=== PATIENT | female | born 1950 | race Caucasian/White ===

== ENCOUNTER 2017-10-13 13:19 | Inpatient (IN) ==
--- NOTE | 2017-10-12 09:01 | Discharge Summary ---
<Meme Ferguson E - Last Filed: 10/12/17 08:59> Date of Encounter: 10/12/17 - Discharge Diagnosis (1) Status post total replacement of right shoulder Priority: Primary Status: Acute (2) Rotator cuff tear arthropathy of right shoulder Priority: Primary Status: Chronic (3) Arthritis of right shoulder region Priority: Primary Status: Chronic (4) Diabetes mellitus Priority: Secondary Status: Chronic Qualifiers: Diabetes mellitus type: type 2 Diabetes mellitus terminal supervisor insulin use: without terminal supervisor use Diabetes mellitus complication status: with unspecified complications Qualified Code(s): E11.8 - Type 2 diabetes mellitus with unspecified complications (5) HTN (hypertension) Priority: Secondary Status: Chronic Qualifiers: Hypertension type: unspecified Qualified Code(s): I10 - Essential (primary ) hypertension (6) Osteopenia Priority: Secondary Status: Chronic Qualifiers: Osteopenia location: unspecified Qualified Code(s): M85.80 - Other specified disorders of bone density and structure, unspecified site (7) HLD (hyperlipidemia) Priority: Secondary Status: Chronic Qualifiers: Hyperlipidemia type: unspecified Qualified Code(s): E78.5 - Hyperlipidemia , unspecified (8) OAB (overactive bladder) Priority: Secondary Status: Chronic (9) DIEGO (obstructive sleep apnea) Priority: Secondary Status: Chronic (10) Obesity Priority: Secondary Status: Chronic Qualifiers: Obesity type: unspecified obesity type Obesity classification: unspecified obesity classification Serious obesity comorbidity presence: unspecified whether serious comorbidity present Qualified Code(s): E66.9 - Obesity, unspecified - Hospital Course Hospital course: Ms. Bocanegra is a 67 year old female - Time Spent with Patient Total time spent providing and/or coordinating discharge services: - Discharge Medications Home Medications: OxyCODONE Immed Rel [Roxicodone 5 MG] 5 mg PO Q6HR PRN 7 Days #28 tablet [Rx] Alendronate Sodium [Fosamax] 70 mg PO TIJERINA 10/13/17 [History] Aspirin 81 mg PO DAILY 10/13/17 [History] Metformin HCl [Glucophage] 1,000 mg PO BID 10/13/17 [History] Metoprolol XL (24 HR) Succ [Toprol Xl] 100 mg PO DAILY 10/13/17 [History] Oxybutynin Chloride [Ditropan Xl] 5 mg PO DAILY 10/13/17 [History] Rosuvastatin [Crestor] 20 mg PO HS 10/13/17 [History] Allergies/Adverse Reactions: 3 Allergy/AdvReac Type Severity Reaction Status Date / Time No Known Allergies Allergy Verified 10/13/17 13:51 Primary care physician: Sera Nettles CNP - Patient Status Disposition: Home, Self-Care Condition: Good - Discharge Instructions Follow Up With: Sera Nettles CNP [Primary Care Provider] - <Ethan Wong - Last Filed: 10/14/17 06:28> Orders not resulted at time of discharge: Pending orders 10/13/17 01:00 XR shoulder complete RT [XR] Routine Hemoglobin and Hematocrit [HEME] Routine Date of Encounter: 10/14/17 Time of Encounter: 06:27 - Discharge Diagnosis (1) Morbid obesity with BMI of 40.0-44.9, adult Priority: Secondary Status: Chronic (2) Status post total replacement of right shoulder Priority: Primary Status: Acute (3) Rotator cuff tear arthropathy of right shoulder Priority: Primary Status: Chronic (4) Diabetes mellitus Priority: Secondary Status: Chronic Qualifiers: Diabetes mellitus type: type 2 Diabetes mellitus care home insulin use: without care home use Diabetes mellitus complication status: with unspecified complications Qualified Code(s): E11.8 - Type 2 diabetes mellitus with unspecified complications (5) HTN (hypertension) Priority: Secondary Status: Chronic Qualifiers: Hypertension type: unspecified Qualified Code(s): I10 - Essential (primary ) hypertension (6) Osteopenia Priority: Secondary Status: Chronic Qualifiers: Osteopenia location: unspecified Qualified Code(s): M85.80 - Other specified disorders of bone density and structure, unspecified site (7) HLD (hyperlipidemia) Priority: Secondary Status: Chronic Qualifiers: Hyperlipidemia type: unspecified Qualified Code(s): E78.5 - Hyperlipidemia , unspecified (8) OAB (overactive bladder) Priority: Secondary Status: Chronic (9) DIEGO (obstructive sleep apnea) Priority: Secondary Status: Chronic - Hospital Course Hospital course: Ms. Bocanegra is a 67 year old female Patient was seen this morning doing well without complaints. Afebrile vital signs stable. Operative extremity: Neurovascularly intact Dressing clean dry and intact Calves nontender Assessment and plan: Continue with postoperative care Status post total shoulder replacementThe patient had an uneventful postoperative course. They received antibiotics and physical therapy and were discharged in stable condition. There will follow-up in the office in 2 weeks. - Time Spent with Patient Total time spent providing and/or coordinating discharge services: Primary care physician: Sera Nettles CNP Labs on day of discharge: Labs from last 24 hours 10/13/17 10/13/17 13:54 13:38 WBC 6.4 RBC 4.99 H Hgb 15.3 Hct 45.8 H MCV 91.8 MCH 30.7 MCHC 33.4 RDW 13.0 Plt Count 243 MPV 9.0 L Immature Gran % 0.3 Seg Neutrophils % 60.9 Lymphocytes % 28.4 Monocytes % 6.7 Eosinophils % 3.4 Basophils % 0.3 Neutrophils # 3.9 Lymphocytes # 1.8 Monocytes # 0.4 Eosinophils # 0.2 Basophils # 0.0 POC Glucose 113 H - Patient Status Functional capacity at discharge: independent ambulation Overall status at discharge: patient is progressing back to baseline
[2017-10-13 14:18] LABS: Basophils % 0.3 %; Eosinophils # 0.2 K/mcL (0.0-0.6); Eosinophils % 3.4 %; Hematocrit 45.8 % (35.3-44.9); Hemoglobin 15.3 g/dL (11.5-15.4); Immature Granulocytes % 0.3 % (0-4); Lymphocytes # 1.8 K/mcL (0.6-4.6); Lymphocytes % 28.4 %; Mean Corpuscular HGB Conc 33.4 g/dL (31.6-35.5); Mean Corpuscular Hemoglobin 30.7 pg (28.0-33.3); Mean Corpuscular Volume 91.8 fL (83.0-100.0); Monocytes # 0.4 K/mcL (0.0-1.3); Monocytes % 6.7 %; Neutrophils # 3.9 K/mcL (1.6-8.9); Platelet Count 243 K/mcL (140-400); Red Blood Count 4.99 M/mcL (3.82-4.97); Segmented Neutrophils % 60.9 %
[2017-10-13] MEDS ORDERED: CeFAZolin Syr 2,000MG/20 ML 2,000 MG/20 ML SYRINGE IVPB ONE (14:22)
[2017-10-13] MEDS ORDERED: Famotidine 20 MG/2 ML VIAL IVP ONE (14:35)
[2017-10-13] MEDS ORDERED: Acetaminophen IV 1,000 MG/100 ML INFUS..BTL IVPB ONE (14:36)
[2017-10-13] MEDS ORDERED: *HR* OxyCODONE Immed Rel 5 MG TABLET PO PRN ×2 (14:36→20:59)
[2017-10-13] MEDS ORDERED: *HR* HYDROmorphone 2 MG TABLET PO PRN (14:36)
[2017-10-13] MEDS ORDERED: Pregabalin 50 MG CAPSULE PO STA (14:36)
[2017-10-13] MEDS ORDERED: *HR* HYDROcodone/Acet 10/325 mg TABLET PO PRN (14:36)
--- NOTE | 2017-10-13 14:41 | Anesthesia Evaluation PreOp ---
Date of Encounter: 10/13/17 Time of Encounter: 14:39 - Past History Planned Operation: R - Total Shoulder Reverse Cardiac History: HTN (maintained on Metoprolol), Hyperlipidemia (maintained on Atorvastatin) Pulmonary History: Former smoker (quit 1981), DIEGO Dx (Denies) DUST COLLECTOR History: Denies Any Significant HX Other Medical History: Diabetes Type II (maintained on Metformin), Other ( Bladder issues managed with Oxybutnin. 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 MO/BMI = 42) Anesthesia History: No Prior Anesthetic Complications, Past Anesthesia (Hyster, R-CTR, Helen, L-ankle. Benign tumor excision R-hand.L-thumb/repair ulnar collateral ligament) Alcohol Use: occasionally Drug use: unknown Medications and Allergies OxyCODONE Immed Rel [Roxicodone 5 MG] 5 mg PO Q6HR PRN 7 Days #28 tablet [Rx] Alendronate Sodium [Fosamax] 70 mg PO TIJERINA 10/13/17 [History] Aspirin 81 mg PO DAILY 10/13/17 [History] Metformin HCl [Glucophage] 1,000 mg PO BID 10/13/17 [History] Metoprolol XL (24 HR) Succ [Toprol XL] 100 mg PO DAILY 10/13/17 [History] Oxybutynin Chloride [Ditropan Xl] 5 mg PO DAILY 10/13/17 [History] Rosuvastatin [Crestor] 20 mg PO HS 10/13/17 [History] 3 Allergy/AdvReac Type Severity Reaction Status Date / Time No Known Allergies Allergy Verified 10/13/17 13:51 - Meds/Allergy Pre-op Review Medications Reviewed: Yes Allergies Reviewed: Yes Beta Blockers on Current Med List: Yes (Metoprolol) If Beta Blockers taken, Date/Time (Last Dose taken): 10/13/2017 @ 1000 Anesthesia Results - Labs 10/13/17 13:54 Laboratory Tests 10/03/17 10/03/17 10/13/17 10:09 10:09 13:38 Sodium 141 Potassium 4.0 Chloride 103 Carbon Dioxide 30 H BUN 13 Creatinine 0.76 Est GFR (Non-Af Amer) > 60 Glucose 156 H POC Glucose 113 H Est Mean Plasma Glucose 143 Hemoglobin A1c 6.6 H - Imaging EKG: image reviewed (EKG dated 10/03/2017 - 63bpm SR, poor R wave progression.) Anesthesia Exam O2 Sat Height 1.6 m Height 1.6 m Weight 106.594 kg Weight 106.594 kg O2 Sat by Pulse Oximetry 96 Vital Signs Temp Pulse Resp BP Pulse Ox 97.9 F 59 18 160/70 96 10/13/17 13:42 10/13/17 13:42 10/13/17 13:42 10/13/17 13:42 10/13/17 13:42 Height: 5'3" Weight: 235# BMI = 42 NPO (# of Hours): MNoc - HEENT Pupil (Motor): Pupils equal, EOMI Mallampati: III Teeth: Normal Oral Opening: Greater than 3 - DUST COLLECTOR LOC: Oriented DUST COLLECTOR Motor: Normal RUE, Normal LUE, Normal RLE, Normal LLE, Normal Face DUST COLLECTOR Sensory: Normal: RUE, LUE, RLE, LLE, Face - Cardiac Rhythm: Regular Murmur: None - Pulmonary Breath Sounds: bilateral Clear Respiratory Effort: Symmetrical Anesthesia Assess/Plan ASA Score: 3 (MO, HTN, DM, Obesity/BMI = 42) Modified Dundee Scale for Level of Consciousness: Cooperative, oriented, and tranquil Anesthetic Plan: General, Regional (Supraclavicular PNB) Monitoring Plan: Standard Monitors Recovery Plan: PACU Anes Supervising Prov Stmt: Pt seen/evaluated, R&B Discussed, questions answered and consent obtained. Deshaun Hare MD
[2017-10-13] MEDS: Ringers Solution, Lactated 1,000 ML IVC SCH ×2 (15:06→18:47)
[2017-10-13] MEDS ORDERED: *HR* FentaNYL (PF) 100 MCG/2 ML VIAL ONE (15:10)
[2017-10-13] MEDS ORDERED: Dexamethasone 4 MG/ML VIAL ONE (15:10)
[2017-10-13] MEDS ORDERED: *HR* Propofol 200 MG/20 ML VIAL IVP ONE (15:11)
[2017-10-13] MEDS ORDERED: *HR* Midazolam HCl 2 MG/2 ML VIAL ONE (15:11)
[2017-10-13] MEDS ORDERED: Lidocaine -MPF 2% 2 ML VIAL ONE (15:15)
[2017-10-13] MEDS ORDERED: Ondansetron 4 MG/2 ML VIAL ONE (15:15)
--- NOTE | 2017-10-13 15:27 | History & Physical Report ---
Date of Encounter: 10/13/17 Time of Encounter: 15:26 24 Hour HP Update - Instructions Instructions: If the History and Physical is less than 30 days old and was completed prior to A.M. admission and or procedure and has NOT been updated on calendar day of procedure please complete this update prior to performing procedure. - Update Patient reports changes in Medical Condition: No Changes in examination, assessment, or condition: No Changes in Medication: No Preop tests/diagnostics Reviewed: Yes Surgery Remains Indicated: Yes Consent for Planned Operative Procedure(s) Verified: Yes - Pre-Operative Checklist Preoperative Checklist Indicated: No Prophylactic Antibiotic Ordered: Yes Is VTE Prophylaxis Indicated?: Yes
[2017-10-13] MEDS ORDERED: Bupivacaine/Clonidine Syringe 1 EACH SYRINGE ONE (15:50)
[2017-10-13] MEDS ORDERED: ROPIVACAINE HCL/PF 0.5% 30 ML VIAL ONE (15:50)
--- NOTE | 2017-10-13 16:26 | Anesthesia Procedures ---
Date of Encounter: 10/13/17 Time of Encounter: 14:40 Procedures: Anesthesia - Nerve Block Procedure Date: 10/13/17 Time: 16:00 Pre-op Diagnosis: Rt Shoulder Arthropathy Surgical Procedure: Rt Total Shoulder Checklist: Correct Patient Identifier Correct side: Right Blood Thinner: No Monitor Applied: EKG, BP, Pulse Oximetry Supplemental Oxygen via Nasal Cannula (L/min): 2 Sedation: Versed (mg): 2 Sedation: Fentanyl (mcg): 50 Indication: Post Op Analgesia Pre-op Neuro Deficits: No Block Type: Supraclavicular Catheter placed: No Depth at skin (cm): 3 Sterile Technique: Yes Ultrasound used: Yes Anatomy identified: Yes Visual spread of Local: Yes Neuro Stimulation: No Blood on Needle Aspiration: No Smooth Injection of Local: Yes Pain with Injection of Local: No Prep: Chlorhexadine Needle: 22 x 50 mm Stimuplex Local: 0.25% Bupivicaine w/Clonidine 20 mcg/cc, Ropivacaine, Other ( Dexamethasone 20 mg) Volume (cc): 30 Number of Attempts: 1 Complications: None/effective block Vitals: Vital Signs/O2 Sat/Glucose, Most Current Temp Pulse Resp BP Pulse Ox 10/13/17 16:14 53 12 127/63 94 10/13/17 15:59 64 16 127/70 99 10/13/17 13:42 97.9 F 59 18 160/70 96
[2017-10-13] MEDS ORDERED: EPHEDrine 50 MG/ML VIAL ONE (16:36)
--- NOTE | 2017-10-13 17:15 | Orthopedic Operative Note ---
Date of procedure: 10/13/17 Pre-op diagnosis: Right shoulder cuff tear arthropathy Post-op diagnosis: same Procedure: Procedure: Total Shoulder Replacment Reverse, right Estimated blood loss: 100 cc Hardware: Metal and polyethylene replacement: Arthrex large glenoid baseplate, 2 4.5 screws. 1 6.5 screw, 42+4 glenosphere,8 humeral stem, poly insert 6 Exam Under anesthesia: Restricted motion all planes. Procedural Notes: Grade 4 arthritic changes glenoid and humeral head. Rotator cuff tear. Operative procedure: The patient was brought to the operating room and placed on the operating room table. After general anesthesia was administered the operative shoulder was examined. Findings were noted. The patient was placed in the modified beachchair position. All pressure points were padded appropriately. And the head was stabilized in the neutral position. The operative extremity was prepped and draped in the sterile surgical fashion. The patient received IV antibiotics prior to skin incision. A standard deltopectoral approach was made to the operative shoulder. Incision was made to the skin and subcutaneous tissue,hemo stasis was obtained with Bovie cautery. Using careful blunt dissection the cephalic vein was identified and mobilized medially. The deltopectoral interval was developed and the clavipectoral fascia was incised. The subscap was released off the lesser tuberosity and tagged with #2 FiberWire suture subscap was irreparable.. The humerus was dislocated patient noted to have tear supraspinatus tendon, and the humeral cut was made along the anatomic neck. Patient noted to have grade 4 arthritic changes humeral head. Anterior and posterior Bankart retractors were placed to expose the glenoid. The glenoid guide was seated and the centering hole was made. It was reamed with the appropriate reamer. The large baseplate was seated and secured with (2) 4.5 screws and one 6.5 screw. The baseplate was irrigated and dried and the 42+4 Glenosphere was seated and secured with the Driver taper. The Driver taper was tested and found to be secure the humerus was redislocated and prepared with the diaphyseal reamers, followed by a broaching process up to the appropriate size 8 in the patient's anatomic version. The metaphyseal reamer was then utilized. Trial reduction found the shoulder to be relocatable. Trial components were removed and The appropriate 9 stem was impacted in place in the patient's anatomic version. Trial reduction found the shoulder to be relocatable and stable with the appropriate 6. Trial component was removed and the realX was seated and secured the shoulder was reduced. The shoulder had excellent motion and excellent stability and no evidence of dislocation. The deep tissue was irrigated with pulse irrigation. The PA close the shoulder. The deltopectoral interval was closed with a running #1 PDS suture, subcutaneous tissue was irrigated and closed with 0 PDS suture, the skin was closed with Dermabond. The patient was placed in a sterile dressing, abduction brace and extubated. The patient was then transferred to the recovery room in stable condition. Anesthesia: GETA Surgeon: Ethan Wong Was there an regional administrative assistant present: Yes Trust [employer] Estates Attorney: Meme Ferguson Estimated blood loss (cc): 100 Condition: stable Disposition: PACU
[2017-10-13] MEDS ORDERED: *HR* Enoxaparin 30 MG/0.3 ML SYRINGE SQ SCH (18:00)
[2017-10-13 18:28] LABS: Hematocrit 41.6 % (35.3-44.9); Hemoglobin 13.8 g/dL (11.5-15.4)
--- NOTE | 2017-10-13 18:54 | Anesthesia Evaluation Post Op ---
Date of Encounter: 10/13/17 Time of Encounter: 18:50 - Vital Signs Vital Signs: Vital Signs/O2 Sat/Glucose, Most Current Temp Pulse Resp BP Pulse Ox 10/13/17 18:45 98.4 F 65 18 128/61 93 10/13/17 18:35 99.1 F 68 18 128/71 94 10/13/17 18:25 74 17 122/76 90 10/13/17 18:15 57 20 131/61 92 10/13/17 18:05 97.1 F L 61 16 127/60 93 10/13/17 17:55 62 19 125/64 94 10/13/17 17:45 63 18 129/63 93 10/13/17 17:35 97.7 F 68 18 139/67 93 10/13/17 16:14 53 12 127/63 94 10/13/17 15:59 64 16 127/70 99 - Lungs Lungs: Clear Ascult./Percussion - Airway Airway: Non-obstructed - Cardiovascular Regular Rate - Mental Status Mental Status: Alert & Oriented, Answers Appropriately - Pain Pain Scale: 0 - Nausea Vomiting Nausea Vomiting: Not Present - Hydration Hydration: Ice chips - Discharge PostOp Status: Transfer Patient to floor
[2017-10-13] MEDS ORDERED: Ondansetron 4 MG/2 ML VIAL IVP PRN (20:59)
[2017-10-13] MEDS ORDERED: MOM Conc 10 ML UD.LIQ PO PRN (20:59)
[2017-10-13] MEDS ORDERED: Sennosides 8.6 MG TABLET PO PRN (20:59)
[2017-10-13] MEDS ORDERED: *HR* OxyCODONE/APAP 5/325 TABLET PO PRN (20:59)
[2017-10-13] MEDS ORDERED: Ringers Solution, Lactated 1,000 ML IVC SCH (20:59)
[2017-10-13] MEDS ORDERED: traMADol 50 MG TABLET PO PRN (20:59)
[2017-10-13] MEDS ORDERED: Dextrose Gel 15 GM/37.5 ML TUBE PO PRN ×2 (20:59)
[2017-10-13] MEDS ORDERED: Naloxone 0.4 MG/ML INJ IVP PRN (20:59)
[2017-10-13] MEDS ORDERED: Temazepam 15 MG CAPSULE PO PRN (20:59)
[2017-10-13] MEDS ORDERED: CeFAZolin Pre 2,000 MG/100 ML 2,000 MG/100 ML BAG IVPB SCH (20:59)
[2017-10-13] MEDS ORDERED: *HR* Dextrose 50 % in Water (Syg) 50 ML SYRINGE IVP PRN (20:59)
[2017-10-13] MEDS ORDERED: D5% in Water 1,000 ML IVC PRN (20:59)
[2017-10-13] MEDS ORDERED: Insulin LISPRO 300 UNITS/3 ML VIAL SQ SCH (21:00)
[2017-10-13] MEDS: *HR* Metformin 500 MG TABLET PO SCH (22:41)
[2017-10-13] MEDS: Insulin LISPRO 300 UNITS/3 ML VIAL SQ SCH (22:42)
[2017-10-13] MEDS: ceFAZolin 2,000 MG in 0.9 % Sodium Chloride 100 ML IVPB SCH (23:17)
[2017-10-14 02:13] LABS: Hematocrit 40.2 % (35.3-44.9); Hemoglobin 13.2 g/dL (11.5-15.4)
[2017-10-14 02:27] LABS: BUN/Creatinine Ratio 18 (6-26); Blood Urea Nitrogen 16 mg/dL (8-23); Calcium 8.4 mg/dL (8.6-10.3); Carbon Dioxide 24 mEq/L (23-29); Chloride 104 mEq/L (98-107); Glucose 311 mg/dL (70-105); Osmolality,Calculated 297 (280-300); Potassium 4.6 mEq/L (3.5-5.1); Sodium 137 mEq/L (136-145); eGFR For African Americans > 60 (> 60); eGFR For Non-African Americans > 60 (> 60)
[2017-10-14] MEDS ORDERED: *HR* Enoxaparin 30 MG/0.3 ML SYRINGE SQ SCH (06:00)
--- NOTE | 2017-10-14 06:28 | Orthopedics Progress Note ---
Date of Encounter: 10/14/17 Time of Encounter: 06:28 - Assessment and Plan (1) Morbid obesity with BMI of 40.0-44.9, adult Current Visit: Yes Status: Chronic (2) Status post total replacement of right shoulder Current Visit: No Status: Acute (3) Rotator cuff tear arthropathy of right shoulder Current Visit: No Status: Chronic (4) Diabetes mellitus Current Visit: No Status: Chronic Qualifiers: Diabetes mellitus type: type 2 Diabetes mellitus rodent exterminator insulin use: without chcf use Diabetes mellitus complication status: with unspecified complications Qualified Code(s): E11.8 - Type 2 diabetes mellitus with unspecified complications (5) HTN (hypertension) Current Visit: No Status: Chronic Qualifiers: Hypertension type: unspecified Qualified Code(s): I10 - Essential (primary ) hypertension (6) Osteopenia Current Visit: No Status: Chronic Qualifiers: Osteopenia location: unspecified Qualified Code(s): M85.80 - Other specified disorders of bone density and structure, unspecified site (7) HLD (hyperlipidemia) Current Visit: No Status: Chronic Qualifiers: Hyperlipidemia type: unspecified Qualified Code(s): E78.5 - Hyperlipidemia , unspecified (8) OAB (overactive bladder) Current Visit: No Status: Chronic (9) DIEGO (obstructive sleep apnea) Current Visit: No Status: Chronic Subjective Interval history: Patient was seen this morning doing well without complaints. Afebrile vital signs stable. Operative extremity: Neurovascularly intact Dressing clean dry and intact Calves nontender Assessment and plan: Continue with postoperative care Hematocrit 40 discharged today Objective Vital signs: Vital Signs Temp Pulse Resp BP Pulse Ox 10/14/17 04:57 97.5 F L 84 21 133/74 91 10/14/17 00:44 98.1 F 70 18 122/70 96 10/13/17 22:44 98.6 F 87 16 151/75 94 10/13/17 21:32 98.4 F 88 19 179/104 93 10/13/17 20:04 97.5 F L 60 16 124/50 92 10/13/17 20:01 97.6 F 67 17 127/81 93 10/13/17 19:27 97.1 F L 61 15 107/76 92 10/13/17 19:01 97.1 F L 63 15 128/68 92 10/13/17 18:45 98.4 F 65 18 128/61 93 10/13/17 18:35 99.1 F 68 18 128/71 94 10/13/17 18:25 74 17 122/76 90 10/13/17 18:15 57 20 131/61 92 10/13/17 18:05 97.1 F L 61 16 127/60 93 10/13/17 17:55 62 19 125/64 94 10/13/17 17:45 63 18 129/63 93 10/13/17 17:35 97.7 F 68 18 139/67 93 10/13/17 16:14 53 12 127/63 94 10/13/17 15:59 64 16 127/70 99 10/13/17 13:42 97.9 F 59 18 160/70 96 Intake and Output 10/13/17 10/13/17 10/14/17 15:59 23:59 07:59 Intake Total 950 / 950 Output Total 450 / 450 350 / 350 Balance 500 / 500 -350 / -350 Intake: IV Fluids 950 / 950 Lactated Ringers 1,000 ML @ 25 950 / 950 mls/hr IVC .Q24H TOBIN Rx#: [id number] Output: Urine 350 / 350 350 / 350 Estimated Blood Loss 100 / 100 Other: Stool Size Small Stool Consistency soft Stool Color Brown Weight 106.594 kg Blood Glucose* 113 319 - Labs CBC & BMP: 10/14/17 01:52 10/14/17 01:52 Labs: Abnormal lab results RBC 4.99 M/mcL (3.82-4.97) H 10/13/17 13:54 MPV 9.0 fL (9.4-12.4) L 10/13/17 13:54 Glucose 311 mg/dL (70-105) H 10/14/17 01:52 POC Glucose 284 mg/dL (70-99) H 10/14/17 01:08 Calcium 8.4 mg/dL (8.6-10.3) L 10/14/17 01:52 - VTE Documentation of Mechanical Device: Venous foot pump, device Consult Discharge Plan - Plan Referrals: Sera Nettles, [employer] WORKER [Primary Care Provider] -
[2017-10-14] MEDS: ceFAZolin 2,000 MG in 0.9 % Sodium Chloride 100 ML IVPB SCH (06:45)
[2017-10-14] MEDS: *HR* Metformin 500 MG TABLET PO SCH (08:41)
[2017-10-14] MEDS: Insulin LISPRO 300 UNITS/3 ML VIAL SQ SCH ×2 (08:41→12:26)
[2017-10-14] MEDS ORDERED: Aspirin 81 MG TAB.CHEW PO SCH (09:00)
[2017-10-14] MEDS ORDERED: Metoprolol XL (24 HR) Succ 50 MG TAB.ER.24H PO SCH (09:00)
[2017-10-14 10:43] VITALS: BP 149/68
[2017-10-19] MEDS ORDERED: NON-FORMULARY MEDICATION 1 EACH EACH (Alendronate Sodium [Fosamax] 70 MG) PO SCH (15:30)
== END 2017-10-14 14:04 | disposition home or self-care (01) | DRG 483 ==
LOC: SAMDAY 13:19 → 3NENU 18:57
PROVIDERS: ADMIT Orthopaedic Surgery; ATTEND Orthopaedic Surgery

== ENCOUNTER 2022-03-11 20:03 | Inpatient (IN) ==
[2022-03-11] MEDS ORDERED: *HR* FentaNYL (PF) 100 MCG/2 ML VIAL IVP ONE (20:29)
[2022-03-11 20:55] LABS: Basophils % 0.3 %; Eosinophils # 0.2 K/mcL (0.0-0.6); Eosinophils % 2.8 %; Hematocrit 38.3 % (35.3-44.9); Hemoglobin 12.6 g/dL (11.5-15.4); Immature Granulocytes % 0.3 % (0-4); Lymphocytes # 1.4 K/mcL (0.6-4.6); Lymphocytes % 19.9 %; Mean Corpuscular HGB Conc 32.9 g/dL (31.6-35.5); Mean Corpuscular Hemoglobin 29.8 pg (28.0-33.3); Mean Corpuscular Volume 90.5 fL (83.0-100.0); Mean Platelet Volume 9.2 fL (9.4-12.4); Monocytes # 0.4 K/mcL (0.0-1.3); Monocytes % 5.8 %; Neutrophils # 4.9 K/mcL (1.6-8.9); Platelet Count 200 K/mcL (140-400); Red Blood Count 4.23 M/mcL (3.82-4.97); Red Cell Distribution Width 13.2 % (11.5-14.5); Segmented Neutrophils % 70.9 %; White Blood Count 6.9 K/mcL (4.3-11.1)
[2022-03-11 21:03] LABS: INR 1.2; Prothrombin Time 13.8 Seconds (9.4-12.1)
[2022-03-11 21:05] LABS: Activated Partial Thrombo Time 31.6 Seconds (26.0-36.0)
[2022-03-11 21:19] LABS: Alanine Aminotransferase 20 Units/L (7-52); Albumin 3.9 g/dL (3.5-5.7); Albumin/Globulin Ratio 1.4 (1.1-2.2); Alkaline Phosphatase 53 Units/L (34-104); Aspartate Amino Transferase 27 Units/L (13-39); BUN/Creatinine Ratio 20 (6-26); Bilirubin,Total 0.4 mg/dL (0.3-1.0); Blood Urea Nitrogen 15 mg/dL (8-23); Calcium 9.2 mg/dL (8.6-10.3); Carbon Dioxide 27 mEq/L (23-29); Chloride 104 mEq/L (98-107); Creatine Kinase 45 Units/L (30-223); Globulin 2.7 g/dL (2.4-3.5); Glucose 226 mg/dL (70-105); Magnesium 1.6 mg/dL (1.6-2.6); Osmolality,Calculated 296 (280-300); Potassium 4.3 mEq/L (3.5-5.1); Sodium 139 mEq/L (136-145); Total Protein 6.6 g/dL (6.4-8.9); Troponin I < 0.03 ng/mL (< 0.04)
[2022-03-12] MEDS ORDERED: Acetaminophen 325 MG TABLET PO PRN (03:44)
[2022-03-12] MEDS ORDERED: D5% in Water 1,000 ML IVC PRN (03:44)
[2022-03-12] MEDS ORDERED: Melatonin 3 MG TABLET PO PRN (03:44)
[2022-03-12] MEDS ORDERED: Ondansetron ODT 4 MG TAB.RAPDIS SL PRN (03:44)
[2022-03-12] MEDS ORDERED: Dextrose Gel 15 GM/37.5 ML TUBE PO PRN ×2 (03:44)
[2022-03-12] MEDS ORDERED: Naloxone 0.4 MG/ML INJ IVP PRN (03:44)
[2022-03-12] MEDS ORDERED: *HR* Dextrose 50 % in Water (Syg) 50 ML SYRINGE IVP PRN (03:44)
[2022-03-12 09:03] LABS: Alanine Aminotransferase 18 Units/L (7-52); Albumin/Globulin Ratio 1.5 (1.1-2.2); Alkaline Phosphatase 52 Units/L (34-104); Aspartate Amino Transferase 25 Units/L (13-39); BUN/Creatinine Ratio 18 (6-26); Bilirubin,Total 0.5 mg/dL (0.3-1.0); Blood Urea Nitrogen 11 mg/dL (8-23); Calcium 9.4 mg/dL (8.6-10.3); Carbon Dioxide 29 mEq/L (23-29); Chloride 106 mEq/L (98-107); Chol/HDL Ratio 1.9 (0-4.9); Cholesterol 83 mg/dL (< 200); Globulin 2.7 g/dL (2.4-3.5); Glucose 153 mg/dL (70-105); HDL Cholesterol 44 mg/dL (40-59); LDL Cholesterol,Calculated 28 mg/dL (< 100); Magnesium 1.7 mg/dL (1.6-2.6); Osmolality,Calculated 292 (280-300); Phosphorous 3.2 mg/dL (2.7-4.5); Potassium 3.9 mEq/L (3.5-5.1); Sodium 140 mEq/L (136-145); Total Protein 6.7 g/dL (6.4-8.9); Triglycerides 55 mg/dL (< 150)
[2022-03-12] MEDS: Insulin LISPRO 300 UNITS/3 ML VIAL SUBQ SCH ×4 (11:51→21:41)
[2022-03-12] MEDS: Metoprolol XL (24 HR) Succ 50 MG TAB.ER.24H PO SCH (17:11)
[2022-03-12] MEDS: QUEtiapine Fumarate 25 MG TABLET PO SCH (21:40)
[2022-03-13] MEDS ORDERED: Metoprolol XL (24 HR) Succ 50 MG TAB.ER.24H PO SCH (09:00)
[2022-03-13] MEDS: Metoprolol XL (24 HR) Succ 50 MG TAB.ER.24H PO SCH (10:05)
[2022-03-13] MEDS: Aspirin 325 MG TABLET PO SCH (10:06)
[2022-03-13] MEDS: Insulin LISPRO 300 UNITS/3 ML VIAL SUBQ SCH ×4 (10:19→20:50)
[2022-03-13] MEDS: QUEtiapine Fumarate 25 MG TABLET PO SCH (20:49)
[2022-03-14] MEDS: Nystatin POWDER 30 GM BOTTLE TP SCH ×3 (02:48→12:42)
[2022-03-14] MEDS: Insulin LISPRO 300 UNITS/3 ML VIAL SUBQ SCH ×3 (07:42→16:47)
[2022-03-14] MEDS: Aspirin 325 MG TABLET PO SCH (08:25)
[2022-03-14] MEDS: *HR* Metformin 500 MG TABLET PO SCH ×2 (08:25→16:47)
[2022-03-14] MEDS: Metoprolol XL (24 HR) Succ 50 MG TAB.ER.24H PO SCH (08:26)
[2022-03-14] MEDS ORDERED: amLODIPine 5 MG TABLET PO SCH (09:00)
[2022-03-14 15:47] VITALS: BP 158/80; PULSE 56; TEMP 98.3; O2SAT 95
== END 2022-03-14 18:20 | disposition home health service (06) | DRG 556 ==
LOC: 3BNU 20:03 → EMEROOARM 20:03 → SUATTDRO 03-12 13:29 → 3BNU 03-12 15:32
PROVIDERS: ADMIT Internal Medicine; ATTEND Internal Medicine